=== PATIENT | male | born 1940 | race Caucasian/White ===

== ENCOUNTER → 2016-11-10 | Outpatient (CLI) | payer OTHER ==
[~2016-11-10] MED LIST: CALCTAB5 PO; CHOLTAB3 PO; Fish Oil PO; GLC/500 PO; MULT-618 PO; OMEP40CA PO
[2016-11-10 11:29] LABS: ALT/SGPT 41 U/L (12-78); AST/SGOT 22 U/L (15-37); BLOOD UREA NITROGEN 27 mg/dl (7-18); CARBON DIOXIDE 28 mmol/L (21-32); CHLORIDE 106 mmol/L (98-107); CHOLESTEROL 231 mg/dl (0-200); GLUCOSE 105 mg/dl (70-99); POTASSIUM 4.3 mmol/L (3.5-5.1); SODIUM 142 mmol/L (136-145); TRIGLYCERIDES 105 mg/dl (0-150); VERY LOW DENSITY LIPOPROT CALC 21 mg/dl
[2016-11-10 11:33] LABS: ALB/GLOB RATIO 1.1 (0.9-2); ALKALINE PHOSPHATASE 72 U/L (45-117); CALCIUM 9.5 mg/dl (8.5-10.1); CHOLESTEROL/HDL RATIO 4.4; HDL CHOLESTEROL 52 mg/dl; LDL CHOLESTEROL CALCULATED 158 mg/dl
[2016-11-10 12:03] LABS: ESTIMATED AVERAGE GLUCOSE 137 mg/dl; HA1C FLAG Normal (Normal)
--- NOTE | 2016-11-16 13:00 | CODING QUERY MEDICAL NECESSITY ---
SUPPORTING DIAGNOSIS NEEDED A supporting diagnosis is required for the test/procedure performed on this patient in order for us to be reimbursed by the patient's insurance. Please provide a supporting diagnosis for the following test/procedure listed below next to the test name along with your signature. *If there is no additional diagnosis for this patient that would support the following test/procedure please document that below next to the test/procedure. Test(s)/Procedure(s) that require a supporting diagnosis: * HEMOGLOBIN A1C DIAGNOSIS: Provider Signature: Date: Thank you Bertha Aquino [employer] Once completed, please kindly fax back to [phone] For questions please call [phone]
== END | disposition home or self-care (01) ==
LOC: C.LABBC 08:39
PROVIDERS: ATTEND Internal Medicine
DX: R73.03 Prediabetes (principal)

== ENCOUNTER → 2017-05-07 | Outpatient (CLI) | payer OTHER ==
[2017-05-08 06:53] LABS: ESTIMATED AVERAGE GLUCOSE 128 mg/dl; HA1C FLAG Normal (Normal)
== END | disposition home or self-care (01) ==
LOC: C.LABBC 14:42
PROVIDERS: ATTEND Internal Medicine
DX: R73.03 Prediabetes (principal)